=== PATIENT | male | born 1940 | race Caucasian/White ===

== ENCOUNTER 2024-10-12 18:37 | Inpatient (IN) | payer MEDICARE, OTHER, SELFPAY ==
[2024-10-12 10:06] VITALS: BP 143/89
[2024-10-12] MEDS: LIDOCAINE URO-JET 2% 1 SYRINGE TOPICAL (12:48)
[2024-10-12 14:41] LABS: % Basophils 0.4 % (0-2); % Eosinophils 0.4 % (0-6); % Immature Granulocytes 0.5 % (0-0.5); % Monocytes 6.1 % (1.7-9.3); % Neutrophils 82.6 % (42.2-75.2); Absolute Lymphocytes 0.9 10^3/uL (1.2-3.4); Absolute Monocytes 0.5 10^3/uL (0.1-0.6); Hematocrit 42.7 % (39.0-52.0); Mean Corp Hgb Conc. 35.1 g/dL (33.0-37.0); Mean Platelet Volume 11.1 fL (7.4-10.4); Nucleated Red Blood Cells % 0 % (-); Platelet Count 117 10^3/uL (130-400); Red Blood Cell Count 4.69 10^6/uL (4.70-6.10); Red Cell Dist. Width 13.7 % (11.5-14.5); White Blood Cell Count 8.5 10^3/uL (4.8-10.8)
[2024-10-12 14:44] VITALS: BP 139/79
[2024-10-12 14:47] LABS: INR 1.12; PT 14.7 Sec (11.4-14.6)
[2024-10-12 14:57] LABS: Blood Urea Nitrogen 23 mg/dl (9-20); Calcium 9.4 mg/dl (8.4-10.2); Carbon Dioxide 26 mmol/L (22-30); Chloride 101 mmol/L (98-107); Glucose 151 mg/dl (70-99); Sodium 136 mmol/L (135-145); eGFR > 60.00
--- NOTE | 2024-10-12 16:13 | ED.GENMED ---
History of Present Illness
General
Chief Complaint: Male Genito-Urinary Symptoms
Source: patient
Time Seen by Provider: 10/12/24 12:04
History of Present Illness
History of Present Illness:
84-year-old male presents to the emergency room complaining of passing blood and clots when he urinates. Patient feels like he cannot empty his bladder. Symptoms have been present for the past couple days. He was initially seen at an urgent care
for dysuria and frequency. He noted his urine was dark at that time. He was started on Macrobid. However that evening he began to have gross bleeding. Over the night last night he was unable to urinate any significant amount of urine despite the
sensation that his bladder was full. When he would force out urine he noticed there was clots. He does not take any anticoagulants. He has a history of prostate cancer for which she had radiation treatment about 4 to 5 years ago. He has not had
hematuria previously. Patient does know that he has prostatic hypertrophy. He is known to Dr. Olivares.
Phy Exam
Physical Exam
Physical Exam:
General: Awake, Alert, Oriented X3. No acute distress.
Vitals: unremarkable
Head: Atraumatic
Eyes: Pupils equal, EOMI
Throat: Airway intact, no exudates
Neck: Trachea midline
Lungs: Clear and equal b/l
Heart: Regular rate, no murmurs
Abd: Soft, suprapubic fullness and discomfort, No pulsatile mass
Neuro: Nonfocal
Skin: Warm, dry, no rash
Extremities: pulses equal b/l, no edema
Course
Orders/Labs/Results
Orders:
Orders
10/12/24 Breakfast
Cholesterol Lowering
At Your Request: Full Participation
Cholesterol Lowering: Sodium, 2 Gram
10/12/24 12:39
Lidocaine 2% [Lidocaine Uro-Jet 2%] 1 syringe .ROUTE .[facility]
10/12/24 12:47
Lidocaine 2% [Lidocaine Uro-Jet 2%] 1 syringe TOPICAL NOW STA
10/12/24 14:23
Type+Screen Urgent
Basic Metabolic Panel Urgent
Complete Blood Count/With Diff Urgent
Prothrombin Time Urgent
10/12/24 14:43
CBI- Treatment PRN
Solution: normal saline
Irrigate to Clear?: Yes
10/12/24 16:11
CefTRIAXone [Rocephin] 1,000 mg IV NOW STA
10/12/24 17:46
ABO2 Urgent
BBK Wristband Number:
Associate notified that ABO2 has been ordered: RANDOLPH
Date: 10/12/24
Time: 14:33
Home Worker ID: [id number]
10/12/24 18:24
Admit/Transfer Patient As Directed
Co-Sign Provider:
Level of Care: Inpatient admission
Assign to:: Medical/Surgical
Physician / Group: [email or web address]
Diagnosis: Hematuria with clot retention
Reason for Hospitalization: Hematuria with clot retention
Expected length of stay greater than two midnights?: Yes
ELOS- Estimated Length of Stay in days: 2
I certify the patient meets the requirements for IP care: Yes
10/12/24 18:26
Code Status As Directed
Resuscitation Status: Full Code
10/12/24 20:41
0.9% Sodium Chloride 1000 ml [Nss] 1,000 ml IV 60 mls/hr
Acetaminophen [Tylenol] 1,000 mg PO Q6HPRN PRN
Bisacodyl [Dulcolax] 10 mg RECTAL [id number] PRN
Docusate W/Senna [Senokot-S] 1 tablet PO BIDPRN PRN
Ondansetron Injectable [Zofran] 4 mg IV Q6HPRN PRN
Polyethylene Glycol Powder [Miralax] 17 grams PO DAILYPRN PRN
10/12/24 20:41
UROLOGY CONSULT Routine
Consulting Provider: Alex Long
Was physician already notified: Yes
Comment: Hematuria with clot retention
Activity As Directed
Activity Level: With Assistance
Compression Sleeves [Pneumatic Compression Sleeves] As Directed
Type: Knee high
Intake/ Output As Directed
Frequency: Per unit guidelines
Vital Signs As Directed
Frequency: Per unit guidelines
Weight As Directed
Frequency: Daily
DX Deep Vein Thrombosis Video Routine
10/13/24 06:31
Basic Metabolic Panel IN AM
Complete Blood Count/No Diff IN AM
10/13/24 08:00
Hydrochlorothiazide [Oretic] 12.5 mg PO DAILY
Losartan [Cozaar] 100 mg PO DAILY
Rosuvastatin Calcium [Crestor] 10 mg PO DAILY
10/13/24 18:00
CefTRIAXone [Rocephin] 1,000 mg IV Q24H
Abnormal Lab Results
10/12/24
14:23
RBC 4.69 L 10^6/uL
(4.70-6.10)
MCH 32.0 H pg
(27.0-31.0)
Plt Count 117 L 10^3/uL
(130-400)
MPV 11.1 H fL
(7.4-10.4)
Absolute Neuts (auto) 7.0 H 10^3/uL
(1.4-6.5)
Absolute Lymphs (auto) 0.9 L 10^3/uL
(1.2-3.4)
Neutrophils % 82.6 H %
(42.2-75.2)
Lymphocytes % 10.0 L %
(20.5-51.1)
PT 14.7 H Sec
(11.4-14.6)
BUN 23 H mg/dl
(9-20)
Glucose 151 H mg/dl
(70-99)
10/12/24 14:23
10/12/24 14:23
Vital Signs
Initial and Last Documented VS:
Initial Vital Signs
Temp Pulse Resp BP Pulse Ox
98.4 F 80 18 143/89 98
10/12/24 10:06 10/12/24 10:06 10/12/24 10:06 10/12/24 10:06 10/12/24 10:06
Last Documented Vital Signs
Temp Pulse Resp BP Pulse Ox
98 F 81 21 138/70 94
10/13/24 08:14 10/13/24 08:14 10/13/24 08:14 10/13/24 08:14 10/13/24 08:14
MDM/Problems Addressed
Differential Diagnosis Includes:
Bladder outlet obstruction from prostatic hypertrophy, bladder out obstruction from clot, hemorrhagic cystitis, bleeding from radiation injury
MDM/Problems Addressed:
Patient presents with inability to urinate adequately. When he does pass urine is grossly bloody. Patient states he was passing clots at home. A three-way catheter was placed after a bladder scan showed greater than 600 cc of urine in the
bladder. Grossly bloody urine was obtained. Continuous bladder irrigation initiated. Patient's renal function is normal. Given the level of hematuria patient will be hospitalized for continuing CBI. Rocephin given for potential hemorrhagic
cystitis.
*Pulse Oximetry
Patient hypoxic: no
*Critical Care Note
Total Time (30-74mins, 75-104mins- exclusive of procedures): Not Applicable
ED Attending Note
-
Portions of this chart may have been created with voice recognition software.� Occasional wrong word or��sound alike� substitutions may have occurred due to the inherent limitations of voice recognition software.
Discharge Plan
Departure
Patient Disposition: Admit
Date of Disposition: 10/12/24
Time of Disposition: 16:13
Admit to: Med/Surg
Presentation/result/management discussed w/ accepting MD/DO: Hospitalist
Condition: Fair
Discharge Problem:
Hematuria
Interventions
Interventions:
*Risk Screen - Suicide Last Done: 10/12/24 10:06
*General Assessment Last Done: 10/12/24 10:06
*Neglect/Abuse Screening Last Done: 10/12/24 10:06
*ED- Fall Risk Assessment Last Done: 10/12/24 14:44
*ED COVID-19 Vaccine History Last Done: 10/12/24 14:44
*Nursing Disposition Last Done: 10/12/24 20:41
ED-Male Genitourinary Assessment Last Done: 10/12/24 12:45
Discharge Date and Time
Discharge Date/Time: 10/12/24 20:42
[2024-10-12 16:27] VITALS: BP 146/65
[2024-10-12] MEDS: ROCEPHIN 1000 MG IV (17:50)
--- NOTE | 2024-10-12 18:20 | HPS.HSE ---
Family Physician
-
Family Physician: Julia Warner
Chief Complaint
-
bloody urine
History of Present Illness
HPI
84M seen at ER
- has been following at [facility] for bladder infection on OP ABx
- now pw bloody urine with large amount of clots
- reports troubl eemptying bladder
- using pads due to hematuria
Medical History
Past Medical History
Past Medical History: Reports Cancer (Adenocarcinoma of prostate , Elevated prostate specific antigen (PSA) ) and Other (Primary osteoarthritis, left shoulder)
Past Surgical History: Reports Other
Social History
Tobacco: Non-smoker
Alcohol: None
Family History
Family History: Cancer ( prostate cancer )
Allergies / Home Medications
Allergies reflects when Allergies were last updated in [employer].
Home Medications with original date entered in [employer]
Allergy/Medication List:
Allergies
Allergy/AdvReac Type Severity Reaction Status Date / Time
GALINA Inhibitors Allergy Severe Swelling Verified 10/12/24 10:05
Home Medications
acetaminophen 500 mg tablet (Tylenol Extra Strength) 1,000 mg PO Q6H PRN pain 10/12/24
cholecalciferol (vitamin D3) 50 mcg (2,000 unit) tablet 50 mcg PO DAILY 10/12/24
cyanocobalamin (vitamin B-12) 1,000 mcg tablet 1,000 mcg PO DAILY 10/12/24
hydrochlorothiazide 12.5 mg tablet 12.5 mg PO DAILY 10/12/24
losartan 100 mg tablet (Cozaar) 100 mg PO DAILY 10/12/24
rosuvastatin 10 mg tablet (Crestor) 10 mg PO DAILY 10/12/24
Review of Systems
-
Constitutional: Reports No Symptoms
EENT: Reports No Symptoms
Respiratory: Reports No Symptoms
Cardiac: Reports No Symptoms
Abdomen/GI: Reports No Symptoms
: Reports See HPI
Musculoskeletal: Reports No Symptoms
Skin: Reports No Symptoms
Neurological: Reports No Symptoms
Endocrine: Reports No Symptoms
Hematologic/Lymphatic: Reports No Symptoms
Psych: Reports No Symptoms
Physical Exam
Vital Signs
Vital Signs
Temp Pulse Resp BP Pulse Ox
98.4 F 75 16 146/65 97
10/12/24 10:06 10/12/24 16:27 10/12/24 18:00 10/12/24 16:27 10/12/24 16:27
Physical Exam
General: Well Developed, Well Nourished and No Apparent Distress
HEENT: NormoCephalic, Moist mucous membranes and Atraumatic
Respiratory: Clear
Cardiac: S1/S2 and Regular Rhythm; No Murmur or Rub
GI: Soft, Non Tender, Non Distended and Normal Bowel Sounds; No Organomegaly
Rectal: Deferred by Provider
Genito-urinary: Bloody Urine and Continuous Bladder Irrigation
Musculoskeletal: No Clubbing, No Cyanosis and No Edema
Skin: No Rash
Neuro: Nonfocal/grossly intact
Laboratory Results
-
10/12/24 14:23
10/12/24 14:23
Laboratory Results
PT 14.7 Sec (11.4-14.6) H 10/12/24 14:23
INR 1.12 10/12/24 14:23
Data Reviewed
-
Lab Data: Labs Reviewed by me
Impression/Plan
-
Gross hematuria complicate with clot urinary retention
Recent OP UT on unknown ABx
HX Adenocarcinoma of prostate
HX Elevated prostate specific antigen (PSA)
- UA was not sent due to OP ABx
- empiric IV CFTZ
- IV NS
- CBI irrigation
- Urologist consulted
DVT Px: SCD
Full code
IP MS
[2024-10-12 21:12] VITALS: BP 160/57; BMI 34.8
[2024-10-12] MEDS: NSS 1000 IV (21:33)
[2024-10-12 23:50] VITALS: PULSE 70
--- NOTE | 2024-10-13 01:23 | PTCARENOTE ---
Pt admitted to rm [id number] from ED. Pulled over to bed from stretcher. CBI running upon admission - urine dark red with clots. Gtt sped up - urine yellow with clots within approx 1hr. Gtt slowed down again. At this time output is pink tinged/clear
without visible clots. Pt comfortable, sleeping with CPAP on.
[2024-10-13 07:38] LABS: Hematocrit 39.6 % (39.0-52.0); Hemoglobin 13.7 g/dL (13.0-18.0); Mean Corp Hgb Conc. 34.6 g/dL (33.0-37.0); Mean Corpuscular Hgb 31.9 pg (27.0-31.0); Mean Corpuscular Volume 92.1 fL (80.0-94.0); Mean Platelet Volume 11.2 fL (7.4-10.4); Platelet Count 109 10^3/uL (130-400); Red Cell Dist. Width 13.7 % (11.5-14.5); White Blood Cell Count 7.9 10^3/uL (4.8-10.8)
[2024-10-13 08:01] LABS: Blood Urea Nitrogen 17 mg/dl (9-20); Calcium 9.1 mg/dl (8.4-10.2); Carbon Dioxide 29 mmol/L (22-30); Chloride 102 mmol/L (98-107); Estimated Creatinine Clearance 58 ml/min; Glucose 135 mg/dl (70-99); Potassium 4.3 mmol/L (3.5-5.1); Sodium 139 mmol/L (135-145); eGFR > 60.00
[2024-10-13 08:14] VITALS: BP 138/70
[2024-10-13] MEDS: CRESTOR 10 MG PO (09:30)
[2024-10-13] MEDS: COZAAR 100 MG PO (09:30)
[2024-10-13] MEDS: ORETIC 12.5 MG PO (09:30)
--- NOTE | 2024-10-13 11:25 | W.PN.URO.CBU ---
Today's Communication / Plan
-
HAND IRRIGATEPRN CLOTS OR SLOW FLOW KEEP CBI BRISK DRAING NOW THEN TRY AD SLOW IF NO MAJOR CLOTS BY AM
Assessment / Plan
-
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
Diagnosis
-
Date of Service: October 13, 2024
-
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
Post Op Day:
Subjective
-
HATES CONTRERAS BLEEDING SUBSIDED
Objective
-
Vital Signs
Temp Pulse Resp BP Pulse Ox
98 F 81 21 138/70 94
10/13/24 08:14 10/13/24 08:14 10/13/24 08:14 10/13/24 08:14 10/13/24 08:14
Intake and Output
10/12/24 10/13/24 10/14/24
06:59 06:59 06:59
Output Total 2900 / 2900 3600 / 3600
Balance -2900 / -2900 -3600 / -3600
Output:
True Urine Output from CBI 2900 / 2900 3600 / 3600
Laboratory Results
10/13/24 06:31
10/13/24 06:31
Review of Systems
-
: Difficulty Voiding and Bleeding
Physical Exam
-
General - well developed, well nourished, no acute distress
Chest - clear bilaterally
Abdomen - soft, non-tender, positive bowel sounds, no CVAT, no incisional pain or distention
Genitalia - normal
Rectal - normal
Skin - warm & dry with no rash
Neuro - AOx3, no motor deficits
Extremities - no clubbing, no cyanosis, no edema
Incision - clean, dry
Dressing - clean, dry, intact
Care Review
Data Reviewed
Discussed with: Hospitalist and Nursing
--- NOTE | 2024-10-13 13:25 | CM ---
Initial assessment completed with pt at bedside.
Pt is an 84yr old male admitted with hematuria and retention. Pt has new irwin.
At baseline, pt lives with his in a 1 level home with 3 steps to enter
Pt is indep at baseline without assistive device and drives; providing most of the cooking.
Pt does have dme; RW, cane, shower chair, and commode from previous replacements.
Pt has no personal hx of VN/SNF.
Pt is anxious about the irwin and does not want to dc with it. 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
PCP; Julia Warner
Pharm; [facility].
PLAN; Home with no needs.
--- NOTE | 2024-10-13 13:27 | W.PN.HOSP.TC ---
Today's Communication/Plan
-
CBI
Assessment / Plan
Assessment / Plan
84-year-old with hematuria
CVS: S1-S2 normal
Chest: CTA B/L
Abdomen: Soft, NT / Bowel sounds present
Extremities: No edema
# Gross Hematuria
Urology feels Radiation cystis
Not on any antiplatelets or anticoagulants as outpatient
History of adenocarcinoma of the prostate with elevated PSA
Recently treated as outpatient with antibiotics ( Macobid) empirically ( No UA or CX)
Started on ceftriaxone here
CBI and irrigation
Urology consulted and following
No urine analysis or culture available
# Thrombocytopenia-follow
# Hypertension-Losartan/HCTZ
# Hyperlipidemia-Continue statin
# DVT prophylaxis-SCDs
# Full code
Discussed with urology
D/W at bed side
Part of this note was created using voice recognition system. Occasional wrong word or��sound alike� substitutions may have inadvertently occurred due to the inherent limitations of voice recognition software. If noted kindly bring it to my
attention for correction.
Anticipated Discharge: 24 - 48 hours
Subjective/Interval History
-
Date of Service: October 13, 2024
Objective Data
-
Labs:
Laboratory Results
10/13/24
06:31
WBC 7.9
Hgb 13.7
Hct 39.6
Plt Count 109 L
Sodium 139
Potassium 4.3
Chloride 102
Carbon Dioxide 29
BUN 17
Creatinine 1.0
Glucose 135 H
Calcium 9.1
Vital Signs:
Vital Signs
Temp Pulse Resp BP Pulse Ox
98 F 81 21 138/70 94
10/13/24 08:14 10/13/24 08:14 10/13/24 08:14 10/13/24 08:14 10/13/24 08:14
I&O
10/12/24 10/13/24 10/14/24
06:59 06:59 06:59
Output Total 2900 / 2900 3600 / 3600
Balance -2900 / -2900 -3600 / -3600
[2024-10-13] MEDS: NSS IV (15:26)
[2024-10-13 15:53] VITALS: BP 124/58
[2024-10-13] MEDS: STERILE WATER FOR INJECTION 10 ML IV (17:44)
[2024-10-13] MEDS: ROCEPHIN 1000 MG IV (17:44)
[2024-10-13 23:00] VITALS: BP 118/49
[2024-10-14 06:00] VITALS: BMI 34.6
[2024-10-14 06:00] LABS: Hematocrit 39.4 % (39.0-52.0); Hemoglobin 13.5 g/dL (13.0-18.0); Mean Corp Hgb Conc. 34.3 g/dL (33.0-37.0); Mean Corpuscular Hgb 31.5 pg (27.0-31.0); Mean Corpuscular Volume 92.1 fL (80.0-94.0); Mean Platelet Volume 10.7 fL (7.4-10.4); Platelet Count 109 10^3/uL (130-400); Red Blood Cell Count 4.28 10^6/uL (4.70-6.10); Red Cell Dist. Width 13.7 % (11.5-14.5); White Blood Cell Count 8.3 10^3/uL (4.8-10.8)
[2024-10-14 06:12] LABS: Blood Urea Nitrogen 21 mg/dl (9-20); Calcium 9.3 mg/dl (8.4-10.2); Carbon Dioxide 28 mmol/L (22-30); Chloride 102 mmol/L (98-107); Estimated Creatinine Clearance 58 ml/min; Glucose 136 mg/dl (70-99); Potassium 4.2 mmol/L (3.5-5.1); Sodium 136 mmol/L (135-145); eGFR > 60.00
--- NOTE | 2024-10-14 07:14 | PTCARENOTE ---
Pt's CBI running slow per order. About 4500mls instilled throughout shift. 5800 mls of pink urine out. Hand irrigated with 300cc of sterile saline 2x during shift (see worklist). No clots present with irrigation and urine light pink color. No c/o
pain from pt. Plan of care ongoing.
[2024-10-14 07:15] VITALS: BP 134/60
[2024-10-14] MEDS: COZAAR 100 MG PO (08:17)
[2024-10-14] MEDS: ORETIC 12.5 MG PO (08:17)
[2024-10-14] MEDS: CRESTOR 10 MG PO (08:17)
--- NOTE | 2024-10-14 10:02 | W.PN.HOSP.TC ---
Today's Communication/Plan
-
discharge after cT study
Assessment / Plan
Assessment / Plan
84-year-old with hematuria
Physical Exam
General: Well Developed, Well Nourished and No Apparent Distress
HEENT: NormoCephalic, Moist mucous membranes and Atraumatic
Respiratory: Clear
Cardiac: S1/S2 and Regular Rhythm; No Murmur or Rub
GI: Soft, Non Tender, Non Distended and Normal Bowel Sounds; No Organomegaly
Genito-urinary: CBI, no clots
Musculoskeletal: No Clubbing, No Cyanosis and No Edema
Skin: No Rash
Neuro: Nonfocal/grossly intact
Psych: calm.
# Gross Hematuria
Urology feels Radiation cystis
No hematuria this morning
d/w urology, can go home with catheter after CT study, will follow
Not on any antiplatelets or anticoagulants as outpatient
History of adenocarcinoma of the prostate with elevated PSA
Recently treated as outpatient with antibiotics ( Macobid) empirically ( No UA or CX)
Started on ceftriaxone here
s/p CBI and irrigation
Urology consulted and following
No urine analysis or culture available
# Thrombocytopenia-follow
# Hypertension-Losartan/HCTZ
# Hyperlipidemia-Continue statin
# DVT prophylaxis-SCDs
# Full code
Discussed with urology
Total discharge time spent to see the patient, examine the patient, review data and lab result, discuss discharge plan with patient, urology, nursing staff around 65 minutes
Anticipated Discharge: Today
Subjective/Interval History
-
Date of Service: October 14, 2024
No abdominal pain
No dysuria
No fevers
No chest pain
No sob
Objective Data
-
Labs:
Laboratory Results
10/14/24
05:07
WBC 8.3
Hgb 13.5
Hct 39.4
Plt Count 109 L
Sodium 136
Potassium 4.2
Chloride 102
Carbon Dioxide 28
BUN 21 H
Creatinine 1.0
Glucose 136 H
Calcium 9.3
Vital Signs:
Vital Signs
Temp Pulse Resp BP Pulse Ox
97.9 F 82 18 134/60 95
10/14/24 07:15 10/14/24 07:15 10/14/24 07:15 10/14/24 07:15 10/14/24 07:15
I&O
10/13/24 10/14/24 10/15/24
06:59 06:59 06:59
Intake Total 1350 / 1350
Output Total 2900 / 2900 91113 / 95942
Balance -2900 / -2900 -37691 / -88253
--- NOTE | 2024-10-14 10:33 | W.PN.URO.CBU ---
Today's Communication / Plan
-
if neg cat scan home with irwin teach pt leg bag and irwin nght bag care ty
Assessment / Plan
-
ACUTE RETENTION CLOTS FROM RADIATION CYSTIIS stable over night stopped cbi ordered ct scan and if stable home with irwin
Diagnosis
-
Date of Service: October 14, 2024
-
Patient Diagnosis:
Post Op Day:
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
Post Op Day:
Subjective
-
hematurioa subsided
Objective
-
Vital Signs
Temp Pulse Resp BP Pulse Ox
97.9 F 82 18 134/60 95
10/14/24 07:15 10/14/24 07:15 10/14/24 07:15 10/14/24 07:15 10/14/24 07:15
Intake and Output
10/13/24 10/14/24 10/15/24
06:59 06:59 06:59
Intake Total 1350 / 1350
Output Total 2900 / 2900 04238 / 27970
Balance -2900 / -2900 -89831 / -82747
Intake:
Oral fluids 1350 / 1350
Output:
True Urine Output from CBI 2900 / 2900 59980 / 74870
True urine output from hand 40 / 40
irrigation
Laboratory Results
10/14/24 05:07
10/14/24 05:07
Review of Systems
-
: Difficulty Voiding
Physical Exam
-
General - well developed, well nourished, no acute distress
Chest - clear bilaterally
Abdomen - soft, non-tender, positive bowel sounds, no CVAT, no incisional pain or distention
Genitalia - normal
Rectal - normal
Skin - warm & dry with no rash
Neuro - AOx3, no motor deficits
Extremities - no clubbing, no cyanosis, no edema
Incision - clean, dry
Dressing - clean, dry, intact
Care Review
Data Reviewed
Discussed with: Hospitalist and Nursing
[2024-10-14] MEDS: MIRALAX 17 GRAMS PO (12:08)
[2024-10-14 15:00] VITALS: BP 127/52
--- NOTE | 2024-10-14 15:36 | W.DCSUMMARY ---
Discharge Summary
Discharge Data
Date of Admission: 10/12/24
Date of Discharge: 10/14/24
-
Pending Results: No
Hospital Course
84 years old male who presented with hematuria. Patient reported difficulty voiding at home. Patient was admitted and placed on continuous bladder irrigation for prevention of clot retention. Patient was seen by urologist. He was started
empirically on antibiotic. He did not have fever or leukocytosis. Hematuria improved. Scan of the abdomen & pelvis showed no evidence of focal a bladder mass, possible right-sided bladder diverticulum with some blood products, no hydronephrosis
or renal mass. Urologist recommended to go home with Valente catheter with oral antibiotic for prevention of urinary tract infection. Scan of the abdomen also showed hepatic fatty infiltration and evidence of diverticulosis. Patient remained
hemodynamically stable. Patient was discharged home in stable condition.
Discharge Plan
-
Patient Disposition: Home (Routine Discharge)
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
Diet: As tolerated
Referrals:
Alex Long MD [Active] - (call Dr Olivares [phone] to arrange evaluation FOR next step in treatment)
Julia Warner DO [Family Provider] -
Prescriptions:
New
cefuroxime axetil 250 mg tablet
250 mg PO BID Qty: 10 0RF
Continued
acetaminophen [Tylenol Extra Strength] 500 mg Tablet
1,000 mg PO Q6H PRN (Reason: pain)
losartan [Cozaar] 100 mg Tablet
100 mg PO DAILY
rosuvastatin [Crestor] 10 mg Tablet
10 mg PO DAILY
hydrochlorothiazide 12.5 mg Tablet
12.5 mg PO DAILY
cyanocobalamin (vitamin B-12) 1,000 mcg Tablet
1,000 mcg PO DAILY
cholecalciferol (vitamin D3) 50 mcg (2,000 unit) Tablet
50 mcg PO DAILY
Discharge Orders:
Discharge Patient (As Directed); Ordered 10/14/24
Ordered By: Joel Francois
Discharge Date and Time
Discharge Date/Time: 10/14/24 15:36
Print Language: SWEDISH
--- NOTE | 2024-10-14 16:30 | CM ---
MD entered order for discharge.
Spoke with Leidy who is a RN She said she can care for Valente at home. Leg bag given by RN.
Offered VN they declined need.
PLAN Home with Valente declined VN
== END 2024-10-14 15:36 | disposition home or self-care (01) | DRG 700 ==
LOC: 3 WEST ACU 18:37
PROVIDERS: Hospitalist; ADMITTING PHYSICIAN Internal Medicine; ATTENDING PHYSICIAN Internal Medicine; CONSULT PHYSICIAN Specialist; EMERGENCY PHYSICIAN Emergency Medicine; FAMILY PHYSICIAN Internal Medicine
PROC: 5A09357 Assistance with Respiratory Ventilation, Less than 24 Consecutive Hours, Continuous Positive Airway Pressure (ICD-10-PCS; 2024-10-12)
DX: N30.41 Irradiation cystitis with hematuria (principal); Y84.2 Radiological procedure and radiotherapy as the cause of abnormal reaction of the patient, or of later complication, without mention of misadventure at the time of the procedure; R33.8 Other retention of urine; N40.1 Benign prostatic hyperplasia with lower urinary tract symptoms; I10 Essential (primary) hypertension; E78.5 Hyperlipidemia, unspecified; Z79.899 Other long term (current) drug therapy; D69.6 Thrombocytopenia, unspecified; Z85.46 Personal history of malignant neoplasm of prostate
CPT/HCPCS: 51702; 51798; 74178; 80048; 85025; 85027; 85610; 86850; 86900; 86901; 87086; 94660; 96374; 99285; Q9967